=== PATIENT | female | born 1990 | race African-American/Black ===

== ENCOUNTER 2023-02-17 16:13 | Outpatient (CLI) | payer OTHER | END 2023-02-17 16:14 | disposition home or self-care (01) | LOC: CSHRAD 16:13 | PROVIDERS: ATTEND Neurological Surgery | DX: M47.22 Other spondylosis with radiculopathy, cervical region (principal) | CPT/HCPCS: 72050 ==

== ENCOUNTER 2024-05-25 09:50 | Emergency (ER) | payer OTHER ==
[2024-05-25] MEDS ORDERED: Azithromycin 250 MG TAB ONE (10:38)
[2024-05-25] MEDS ORDERED: cefTRIAXone (ROCEPHIN) 500 MG VIAL ONE (10:38)
== END 2024-05-25 10:43 | disposition home or self-care (01) ==
LOC: CSHERS 09:50
DX: Z20.2 Contact with and (suspected) exposure to infections with a predominantly sexual mode of transmission (principal); I10 Essential (primary) hypertension
CPT/HCPCS: 96372; 99283

== ENCOUNTER 2024-08-22 16:08 | Outpatient (CLI) | payer OTHER | END 2024-08-22 16:09 | disposition home or self-care (01) | LOC: CSHDTY/OP 16:08 | PROVIDERS: ATTEND Surgery | DX: Z71.3 Dietary counseling and surveillance (principal); E66.01 Morbid (severe) obesity due to excess calories | CPT/HCPCS: 97802 ==

== ENCOUNTER 2025-06-14 12:03 | Emergency (ER) | payer OTHER ==
[2025-06-14] MEDS ORDERED: Ibuprofen 200 MG TAB ONE (13:08)
== END 2025-06-14 14:07 | disposition home or self-care (01) ==
LOC: CSHERS 12:03
DX: S90.221A Contusion of right lesser toe(s) with damage to nail, initial encounter (principal); I10 Essential (primary) hypertension; W18.49XA Other slipping, tripping and stumbling without falling, initial encounter
CPT/HCPCS: 99283